=== PATIENT | male | born 1950 | race Caucasian/White ===

== ENCOUNTER 2016-12-26 08:46 | Inpatient (IN) | payer OTHER ==
[2016-12-22 16:48] LABS: BASOPHILS 0.4 %; BASOPHILS ABSOLUTE 0.04 10/3/uL (0.0-0.16); EOSINOPHILS ABSOLUTE 0.39 10/3/uL (0.0-0.53); HEMATOCRIT 42.5 % (40.0-51.0); HEMOGLOBIN 14.6 g/dL (13.6-17.8); IMMATURE GRANULOCYTES 0.1 %; IMMATURE GRANULOCYTES ABSOLUTE 0.01 10/3/uL (0.0-0.11); LYMPHOCYTES 24.8 %; LYMPHOCYTES ABSOLUTE 2.44 10/3/uL (0.67-4.30); MANUAL DIFF NO %; MEAN CORPUS HGB CONC 34.4 g/dL (32.0-36.0); MEAN CORPUSCULAR HEMOGLOB 30.1 pg (26.0-34.0); MEAN CORPUSCULAR VOLUME 87.6 fL (80-100); MEAN PLATELET VOLUME 9.2 fL (9.2-13.0); MONOCYTES 9.9 %; MONOCYTES ABSOLUTE 0.97 10/3/uL (0.21-1.20); NEUTROPHILS 60.8 %; NEUTROPHILS ABSOLUTE 5.98 10/3/uL (2.02-8.40); PLATELET COUNT 242 10/3/uL (150-400); RBC DISTRIBUTION WIDTH 13.5 % (12.0-16.0); RED CELL COUNT 4.85 10/6/uL (4.7-6.1); WHITE BLOOD CELLS 9.8 10/3/uL (4.5-10.5)
[2016-12-22 16:56] LABS: INTERNATIONAL NORMAL RATI 1.2 UNITS (-); PROTIME (NOT ORD) 14.7 SEC (12.0-14.5)
[2016-12-22 17:03] LABS: A/G RATIO 0.9 (0.7-1.9); ALBUMIN 3.7 G/DL (3.5-5.0); ALKALINE PHOSPHATASE 80 U/L (45-117); BUN (BLOOD UREA NITROGEN) 19 MG/DL (6-23); CALCIUM, SERUM 8.4 MG/DL (8.5-10.4); CHLORIDE, SERUM 104 MMOL/L (96-112); CO2 (CARBON DIOXIDE) 29 MMOL/L (24-34); CREATININE 1.43 MG/DL (0.70-1.30); GFR AFRICAN AMERICAN 60 ML/MIN (>=60); GFR NON AFRICAN AMERICAN 51 ML/MIN (>=60); GLOBULIN 4.1 G/DL (2.5-4.1); GLUCOSE, SERUM 105 MG/DL (60-99); POTASSIUM, SERUM 4.1 MMOL/L (3.5-5.3); SGOT(AST) 27 U/L (5-40); SGPT(ALT) 23 U/L (5-65); SODIUM, SERUM 141 MMOL/L (135-148); TOTAL BILIRUBIN 0.4 MG/DL (0-1.2); TOTAL PROTEIN 7.8 G/DL (6.0-8.5)
[2016-12-22 18:03] LABS: ASCORBIC ACID (UR NOT ORDER) 40 (NEG); BILIRUBIN, URINE NEGATIVE (NEG); KETONE, URINE NEGATIVE (NEG); LEUKOCYTE ESTERASE(NOT OR NEG (NEG); WBC (NOT ORDERED) (RFLEX) 1 (0-5)
--- NOTE | ~2016-12-26 | OP ---
Record Of Operation [facility] [address] [place]. [address] NAME: TIFFANIE BRADSHAW : 54 STATUS : ADM IN PAT#: [id number] AGE: 66 ADM/REG DATE : 12/26/16 MR#: [id number] REPORT SERV DATE: 12/27/16 DICTATED BY: LOBO TOBAR JR. DATE: 12/26/16 REPORT STATUS : Draft TRANSCRIBED BY: MODDaniel DATE: 12/26/16 DATE OF PROCEDURE: 12/26/2016 PREOPERATIVE DIAGNOSES: Bilateral cavitary lesions, with multiple nodules of unknown etiology, gastroesophageal reflux disease, and hypertension. POSTOPERATIVE DIAGNOSES: Bilateral cavitary lesions, with multiple nodules of unknown etiology, gastroesophageal reflux disease, and hypertension. Pathology and cultures pending. NAME OF OPERATION: Bronchoscopy, right thoracoscopy, with right middle lobe wedge excision x1 for diagnosis, right lower lobe wedge excision x1 for diagnosis, and intercostal nerve block. SURGEON: Lobo Tobar M.D. RESIDENT SURGEON: Glen Mccarty MD. [employer]ER: Esther Cotter. ANESTHESIA: General endotracheal. FINDINGS: The patient was noted to have multiple nodularity throughout the right lung. The right middle lobe appeared to be most intensely involved. There was areas of chronic consolidation and scarring. Most of the nodules ranged from several millimeters to 5 or 6 mm. Two areas were wedged out, one in the right middle lobe, the other in the right lower lobe superior segment. Both these had a dominant nodule that when cut into was a cavitary process. Pus came out from the cavity process. This pus was sent for cultures. Actual tissue was also sent for cultures. Frozen section confirmed necrotizing granulomas. Final pathology and cultures are pending. On bronchoscopy, there were no endobronchial lesions. Mucous secretions were evacuated. There was no contraindications to proceeding on with surgery. DETAILS OF OPERATION: After adequate general anesthesia, the patient was intubated. A bronchoscopy was performed noting no endobronchial lesions or contraindication to resection. Mucous secretions were evacuated. A left-sided double-lumen endotracheal tube was then placed. The patient then positioned in the left lateral decubitus position. The right chest was prepped and draped in routine sterile fashion. A small incision was made overlying the lower intercostal space, and a separate anterior trocar incision was also made. Through these two incision sites, the above findings were noted. The chest was explored. The decision made to wedge out a section from the right middle lobe, as well as the superior segment of the right lower lobe. Multiple firings of DESI stapler with tissue reinforcements were utilized. Each of these specimens had a dominant lesion which was cut into with purulent material coming from this cavitary mass. This was sent for cultures. A section of the cavitary mass was also sent for cultures. The rest was sent for pathology. Frozen section confirmed necrotizing granulomatous disease. Final pathology and cultures Record Of [address] [address] NAME: TIFFANIE BRADSHAW : 54 STATUS : ADM [facility]#: [id number] AGE: 66 ADM/REG DATE : 12/26/16 MR#: [id number] REPORT SERV DATE: 12/27/16 DICTATED BY: LOBO TOBAR JR. DATE: 12/26/16 REPORT STATUS : Draft TRANSCRIBED BY: ALICE DATE: 12/26/16 are pending. An intercostal nerve block was performed. A 28-[place] chest tube was placed. The lung was reinflated. The trocar sites were closed with running Vicryl sutures. The skin was closed with running monofilament suture. A Dermabond dressing was applied, and the procedure was terminated at this point. The patient tolerated the procedure well and taken back to recovery room in stable condition. AGUSTINA/ALICE Lobo Tobar Jr., M.D. / [id number] CC: Olivia Melchor Jr., MD Ahmad Ibrahimbacha, MD
[~2016-12-26 08:46] MED LIST: ADVIL; ADVIL PO; DYMISTA NASAL S23 GM NAS; MAGOX4 PO; PROTONIX PO; VITAMIN B; Z100 PO; ZYRTEC ALLGY10 MG PO
[2016-12-27 05:46] LABS: BASOPHILS 0 %; EOSINOPHILS 0 %; HEMATOCRIT 40.7 % (40.0-51.0); HEMOGLOBIN 13.7 g/dL (13.6-17.8); IMMATURE GRANULOCYTES 0.4 %; IMMATURE GRANULOCYTES ABSOLUTE 0.05 10/3/uL (0.0-0.11); LYMPHOCYTES 4.9 %; LYMPHOCYTES ABSOLUTE 0.69 10/3/uL (0.67-4.30); MEAN CORPUS HGB CONC 33.7 g/dL (32.0-36.0); MEAN CORPUSCULAR HEMOGLOB 29.7 pg (26.0-34.0); MEAN CORPUSCULAR VOLUME 88.3 fL (80-100); MEAN PLATELET VOLUME 9.7 fL (9.2-13.0); MONOCYTES 6.6 %; MONOCYTES ABSOLUTE 0.92 10/3/uL (0.21-1.20); NEUTROPHILS 88.1 %; NEUTROPHILS ABSOLUTE 12.37 10/3/uL (2.02-8.40); PLATELET COUNT 244 10/3/uL (150-400); RBC DISTRIBUTION WIDTH 13.1 % (12.0-16.0); RED CELL COUNT 4.61 10/6/uL (4.7-6.1)
[2016-12-27 05:47] LABS: MANUAL DIFF NO %
[2016-12-27 05:55] LABS: BUN (BLOOD UREA NITROGEN) 20 MG/DL (6-23); CALCIUM, SERUM 8.3 MG/DL (8.5-10.4); CHLORIDE, SERUM 103 MMOL/L (96-112); CREATININE 1.54 MG/DL (0.70-1.30); GFR AFRICAN AMERICAN 54 ML/MIN (>=60); GFR NON AFRICAN AMERICAN 47 ML/MIN (>=60); POTASSIUM, SERUM 3.9 MMOL/L (3.5-5.3); SODIUM, SERUM 137 MMOL/L (135-148)
[2016-12-27 05:56] LABS: CO2 (CARBON DIOXIDE) 22 MMOL/L (24-34); GLUCOSE, SERUM 150 MG/DL (60-99)
[2016-12-27] MEDS ORDERED: PCET PO (09:20)
== END 2016-12-27 11:37 | disposition home or self-care (01) | DRG 168 ==
LOC: SDC/OF 08:46 → PACU 14:24 → 5NO 16:02
PROVIDERS: Thoracic Surgery (Cardiothoracic Vascular Surgery)
PROC: 0BJ08ZZ Inspection of Tracheobronchial Tree, Via Natural or Artificial Opening Endoscopic (ICD-10-PCS; 2016-12-26)
PROC: 3E0T3BZ Introduction of Anesthetic Agent into Peripheral Nerves and Plexi, Percutaneous Approach (ICD-10-PCS; 2016-12-26)
PROC: 0BBD4ZX Excision of Right Middle Lung Lobe, Percutaneous Endoscopic Approach, Diagnostic (ICD-10-PCS; principal; 2016-12-26 11:15)
DX: J84.10 Pulmonary fibrosis, unspecified (principal); I10 Essential (primary) hypertension; K21.9 Gastro-esophageal reflux disease without esophagitis
CPT/HCPCS: 36415; 71020; 80048; 80053; 81001; 82962; 83036; 85025; 85610; 86850; 86900; 86901; 87015; 87070; 87075; 87102; 87116; 87205; 87641; 88307; 88312; 88313; 88331; 93005; 94640; A9270-GY; J0690; J2250; J2370; J2405; J2710; J2795; J3010; P9045